=== PATIENT | male | born 1985 | race Hispanic/Latino ===

== ENCOUNTER → 2018-07-22 16:58 | Outpatient (CLI) | payer OTHER, SELFPAY ==
[2018-07-22 17:48] LABS: Influenza A and B by PCR Rapid Negative (Negative)
== END ==
PROVIDERS: Visit Provider Physician Assistant
DX: R68.89 Other general symptoms and signs (principal)
CPT/HCPCS: 87400

== ENCOUNTER → 2023-07-19 09:52 | Outpatient (CLI) | payer OTHER, SELFPAY ==
--- NOTE | 2023-07-19 09:55 | DI.RAD.S_ITS ---
PROCEDURE: XR ANKLE RT MIN 3V INDICATIONS: snow boarding injury, more pain lateral ankle TECHNIQUE: 3 views of the ankle were acquired. COMPARISON: None. FINDINGS: Bones: Possible nondisplaced fracture at the lateral talus seen on one view only. Chronic appearing osseous irregularity of the dorsal talonavicular ligament may be the sequela of a remote prior injury. Small plantar calcaneal enthesophyte. Ankle mortise is normally aligned. No suspicious bony lesions. Soft tissues: Soft tissue is seen at the lateral ankle. IMPRESSION: Suspected nondisplaced fracture of the lateral process of the talus. Recommend correlation for point tenderness. Approved by: Lawrence Steele M.D. on 07/19/2023 at 14:56
--- NOTE | 2023-07-19 09:55 | DI.RAD.S_ITS ---
PROCEDURE: XR FOOT RT MIN 3V INDICATIONS: snow boarding injury, more pain lateral ankle TECHNIQUE: Three views of the foot were acquired. COMPARISON: None. FINDINGS: Bones: Suspected nondisplaced fracture at the lateral process of the talus. No additional osseous fracture is seen. Small chronic calcification adjacent to the dorsal talonavicular joint, which is likely the sequela of a remote prior injury. Plantar calcaneal enthesophyte. Soft tissues: Soft tissue edema is seen at the lateral hindfoot and ankle. IMPRESSION: Suspected nondisplaced fracture at the lateral process of the talus. Approved by: Lawrence Steele M.D. on 07/19/2023 at 14:59
== END ==
PROVIDERS: Referring Provider Physician Assistant; Visit Provider Physician Assistant
DX: S99.911A Unspecified injury of right ankle, initial encounter (principal); X58.XXXA Exposure to other specified factors, initial encounter; Y93.23 Activity, snow (alpine) (downhill) skiing, snowboarding, sledding, tobogganing and snow tubing
CPT/HCPCS: 73610; 73630

== ENCOUNTER → 2023-08-03 10:32 | Outpatient (CLI) | payer OTHER, SELFPAY ==
--- NOTE | 2023-08-03 | DI.CT.S_ITS ---
PROCEDURE: CT LE RT WO CON INDICATIONS: Nondisplaced fracture of body of right talus, init TECHNIQUE: Noncontrast 1-1.5 mm axial sections acquired from above the tibiotalar joint to the bottom of the calcaneus, with coronal and sagittal reformats. COMPARISON: [facility], CR, XR ANKLE RT MIN 3V, 07/19/2023, 10:00. FINDINGS: Image quality: Excellent. Bones: There is a small nondisplaced fracture of the lateral process of the talus extending into the posterior subtalar facet without step-off at the articular surface. Nondisplaced fracture of the sustentaculum kailee is also noted extending into the middle subtalar facet without step-off. Chronic osseous irregularity is seen adjacent to the dorsal aspect of the talus and navicular are, likely related to a remote prior injury. No additional osseous fracture is seen. Small plantar calcaneal enthesophyte. Soft tissues: Mild soft tissue edema is seen surrounding the ankle. No significant tibiotalar effusion. The articular cartilages, ligaments, and tendons are not well evaluated with standard CT. The visualized musculature is normal in bulk. IMPRESSION: Small nondisplaced intra-articular fractures at the lateral process of the talus and the sustentaculum kailee of the calcaneus. Approved by: Lawrence Steele M.D. on 08/03/2023 at 12:36
== END ==
PROVIDERS: Referring Provider Physician Assistant; Visit Provider Physician Assistant
DX: S92.124A Nondisplaced fracture of body of right talus, initial encounter for closed fracture (principal); S92.014A Nondisplaced fracture of body of right calcaneus, initial encounter for closed fracture; X58.XXXA Exposure to other specified factors, initial encounter
CPT/HCPCS: 73700